=== PATIENT | male | born 1970 | race American Indian/Alaskan Native ===

== ENCOUNTER 2018-02-04 06:03 | Day surgery (SDC) | payer BC ==
[~2018-02-04 06:03] MED LIST: ADRENALIN IV ONE; ANCEF/STERILE WATER 2 GM/20 ML IV NR; MARCAINE 0.25% INFILTRATI ONE; NACL 0.9% IR ONE; NACL ONE; RIFADIN ONE; XYLOCAINE 1%/ EPI 1:100,000 INFILTRATI ONE
[2018-02-04] MEDS ORDERED: MARCAINE 0.25% INFILTRATI ONE (07:32)
[2018-02-04] MEDS ORDERED: ADRENALIN ONE (07:32)
[2018-02-04] MEDS ORDERED: XYLOCAINE 1%/ EPI 1:100,000 INFILTRATI ONE (07:33)
[2018-02-04] MEDS ORDERED: DECADRON ONE ×2 (07:37→10:14)
[2018-02-04] MEDS ORDERED: ZEMURON IV ONE (07:37)
[2018-02-04] MEDS ORDERED: ZOFRAN ONE (07:37)
[2018-02-04] MEDS ORDERED: DIPRIVAN 10 MG/ML IV ONE (07:37)
[2018-02-04] MEDS ORDERED: SUBLIMAZE ONE (07:37)
[2018-02-04] MEDS ORDERED: TORADOL ONE (07:37)
[2018-02-04] MEDS ORDERED: DILAUDID IV PRN (07:52)
[2018-02-04] MEDS ORDERED: SUBLIMAZE IV PRN (07:52)
--- NOTE | 2018-02-04 07:57 | Anesthesia Consultation ---
Anesthesia Consult and Med Hx Date of service: 02/04/18 - Airway Anesthetic Teeth Evaluation: Good ROM Head & Neck: Adequate Mental/Hyoid Distance: Adequate Mallampati Class: Class II Intubation Access Assessment: Probably Good - Pulmonary Exam CTA: Yes - Cardiac Exam Cardiac Exam: RRR - Pre-Operative Health Status ASA Pre-Surgery Classification: ASA2 Proposed Anesthetic Plan: General Nerve Block: IS - Pulmonary Hx Smoking: Yes (STOPPED X 3 WEEKS , 3 PER DAY X 25 YRS) Hx Asthma: No Hx Respiratory Symptoms: No SOB: No Hx Sleep Apnea: Yes (DX SLEEP APNEA , NO CPAP USE.) - Cardiovascular System Hx Hypertension: No Hx Heart Attack/AMI: No - Central Nervous System Hx Neuromuscular Disorder: No CVA: No - Gastrointestinal Hx Gastroesophageal Reflux Disease: Yes (mild; asymptomatic today) - Endocrine Hx Renal Disease: No Hx Liver Disease: No Hx Insulin Dependent Diabetes: No Hx Non-Insulin Dependent Diabetes: No Hx Thyroid Disease: No - Other Systems Hx Obesity: No - Additional Comments Anesthesia Medical History Comments: NO hx anesthetic complications. Undecided on nerve block for post op pain.
--- NOTE | 2018-02-04 07:57 | Anesthesia Day of Surgery ---
Anesthesia Day of Surgery - Day of Surgery Patient Examined: Yes Patient H&P Reviewed: Yes Patient is NPO: Yes
[2018-02-04] MEDS ORDERED: LACTATED RINGERS 1,000 ML IV SCH ×2 (08:00→10:00)
[2018-02-04] MEDS ORDERED: NEURONTIN PO NR (08:00)
[2018-02-04] MEDS ORDERED: VERSED IV NR (08:00)
[2018-02-04] MEDS ORDERED: MARCAINE 0.5% 30 ML INFILTRATI ONE (10:15)
[2018-02-04] MEDS ORDERED: APRESOLINE ONE (10:37)
--- NOTE | 2018-02-04 11:19 | Post Anesthesia Evaluation ---
- Post Anesthesia Evaluation Patient Participated: Yes Airway Patent: Yes Stable Respiratory Function: Yes Nausea/Vomiting: No Temp > 96.8F: Yes Anesthesia Complications: No Block Receding Appropriately: Not Applicable Other Comments: Prior to induction, patient noted to be significantly hypertensive with DBP 110s-120 and MAP 110s which did not improve with hydralazine IV. Patient initially denied hx of HTN during preop assessment but later admitted to a diagnosis of HTN for which he has an antihypertensive prescription but refuses to take. After discussion with Dr. Roth, decision was made to cancel the procedure. Patient was advised of his elevated pressures and strongly encouraged to f/u with his PCP for BP optimization prior to re- scheduling the procedure. He was taken to PACU for further BP monitoring prior to d/c and hospitalist was consulted by surgeon for further evaluation.
--- NOTE | 2018-02-04 14:02 | Consultation ---
History of Present Illness - Reason for Consult Requesting physician: ARLIN PRESTON - History of Present Illness 47 YO Male with Nicotine Dependence, LEDA, GERD consult placed by Dr. Preston for Hypertension. Pt was seen in preop and found to have diastolic HTN. Pt surgery was cancelled. Pt seen and evaluated in Preop and found to have borderline diastolic hypertension. Pt treated with Afterload reduction with HCTZ with normalization of blood pressure. Pt denies fever, chills, CP, Palpitations, NVD, Syncope, Trauma, or recent ill contacts. Pt states that he is upset that his surgery was cancelled, and that "Nobody told me Anything". I took extra time to discuss HTN and the reason that his surgery was cancelled for his personal safety. Pt instructed to f/u pcp 1wk with blood pressure log. Past History Past Medical History: GERD, hypertension Past Surgical History: No surgical history, Other (reviewed) Social history: single. denies: smoking, alcohol abuse Family history: hypertension Medications and Allergies Allergies Allergy/AdvReac Type Severity Reaction Status Date / Time No Known Allergies Allergy Verified 01/30/18 14:43 Home Medications Medication Instructions Recorded Confirmed Last Taken Type hydroCHLOROthiazide [HCTZ] 25 mg PO QDAY #15 tablet 02/04/18 Unknown Rx Active Meds: Active Medications Cefazolin Sodium (Ancef/Sterile Water 2 Gm/20 Ml) 2 gm IV PREOP NR Stop: 02/04/18 23:59 Hydrochlorothiazide (Hctz) 25 mg PO ONCE ONE Stop: 02/04/18 14:02 Lactated Ringer's (Lactated Ringers) 1,000 mls @ 100 mls/hr IV DIRECT JOHNY Last Admin: 02/04/18 10:15 Dose: 100 mls/hr Midazolam HCl (Versed) 2 mg IV PREOP NR Stop: 02/04/18 23:59 Last Admin: 02/04/18 10:18 Dose: 2 mg Review of Systems Constitutional: no weight loss, no weight gain, no fever, no chills Ears, nose, mouth and throat: no ear pain, no ear discharge, no tinnitis, no decreased hearing, no nose pain, no nasal congestion Cardiovascular: no chest pain, no orthopnea, no palpitations, no rapid/ irregular heart beat, no edema, no syncope, no lightheadedness, no shortness of breath Respiratory: no cough, no hemoptysis, no shortness of breath, no dyspnea on exertion Gastrointestinal: no abdominal pain, no nausea, no vomiting, no diarrhea, no constipation, no change in bowel habits, no hematemesis Genitourinary Male: no hematuria, no flank pain, no discharge, no urinary frequency, no urinary hesitancy, no nocturia, no incontinence, no erectile dysfunction Rectal: no pain, no incontinence, no bleeding Musculoskeletal: no neck stiffness, no neck pain, no shooting arm pain, no arm numbness/tingling, no morning stiffness, no muscle weakness, no muscle cramps Integumentary: no rash, no pruritis, no redness, no sores, no wounds Neurological: no head injury, no transient paralysis, no paralysis, no weakness , no parathesias, no numbness, no tingling, no seizures Psychiatric: no anxiety, no memory loss, no change in sleep habits, no sleep disturbances, no insomnia, no hypersomnia, no change in appetite, no change in libido, no suicidal ideation Endocrine: no cold intolerance, no heat intolerance, no polyphagia, no excessive thirst, no polydipsia, no polyuria Hematologic/Lymphatic: no easy bruising, no easy bleeding, no lymphadenopathy, no lymphedema Allergic/Immunologic: no urticaria, no allergic rhinitis, no wheezing, no persistent infections, no anaphylaxis, no angioedema Exam - Constitutional Vitals: Temp Pulse Resp BP Pulse Ox 98.6 F 63 16 158/104 99 02/04/18 06:35 02/04/18 06:35 02/04/18 10:15 02/04/18 12:15 02/04/18 06:35 General appearance: Present: no acute distress, well-nourished - EENT Eyes: Present: PERRL ENT: hearing intact, clear oral mucosa - Neck Neck: Present: supple, normal ROM - Respiratory Respiratory effort: normal Respiratory: bilateral: CTA - Cardiovascular Heart Sounds: Present: S1 & S2. Absent: rub, click - Extremities Extremities: pulses symmetrical, No edema Peripheral Pulses: within normal limits - Abdominal General gastrointestinal: Present: soft, non-tender, non-distended, normal bowel sounds Male genitourinary: Present: normal - Integumentary Integumentary: Present: clear, warm, dry - Musculoskeletal Musculoskeletal: gait normal, strength equal bilaterally - Psychiatric Psychiatric: appropriate mood/affect, intact judgment & insight - Neurologic Neurologic: CNII-XII intact, moves all extremities Assessment and Plan - Patient Problems (1) HTN (hypertension) Current Visit: Yes Status: Acute Qualifiers: Hypertension type: essential hypertension Qualified Code(s): I10 - Essential (primary) hypertension Plan to address problem: Pt initiated on HCTZ. Pt instructed to f/u pcp 1 wk with blood pressure log, low sodium diet,
[2018-02-04] MEDS ORDERED: HCTZ PO ONE (15:01)
[2018-02-04 16:59] VITALS: BP 142/95
== END 2018-02-04 18:40 | disposition home or self-care (01) ==
LOC: OR 06:03
PROVIDERS: ATTEND Orthopaedic Surgery
DX: M75.101 Unspecified rotator cuff tear or rupture of right shoulder, not specified as traumatic (principal); M75.51 Bursitis of right shoulder; I10 Essential (primary) hypertension; K21.9 Gastro-esophageal reflux disease without esophagitis; G47.33 Obstructive sleep apnea (adult) (pediatric); G43.909 Migraine, unspecified, not intractable, without status migrainosus; Z79.899 Other long term (current) drug therapy; Z87.891 Personal history of nicotine dependence; Z98.890 Other specified postprocedural states; Z53.8 Procedure and treatment not carried out for other reasons
CPT/HCPCS: A4217; J0171; J0360; J1100; J2250; J3010; J3490; J7120; J0690; J1885; J2405; J2704